=== PATIENT | male | born 1960 | race Two or more races ===

== ENCOUNTER 2018-04-26 11:46 | Inpatient (IN) | payer MEDICAID ==
[2018-04-26] MEDS ORDERED: IPRATROPIUM/ALBUTEROL 3 ML DEYVIAL IH ONE ×2 (12:06→13:08)
[2018-04-26] MEDS ORDERED: NS 500 ML IV ONE ×2 (12:12→14:00)
--- NOTE | 2018-04-26 12:28 | CPEKG ---
Heart Rate: 112 RR Interval: 536 P-R Interval: 144 QRSD Interval: 74 QT Interval: 308 QTC Interval: 421 P Whiteford: 50 QRS Whiteford: 84 T Wave Whiteford: 1 EKG Severity - OTHERWISE NORMAL ECG - EKG Impression: SINUS TACHYCARDIA Electronically Signed By: Roberto Moore 30-Apr-2018 02:40:09
--- NOTE | 2018-04-26 12:50 | EDPHY ---
H & P Time Seen by Provider: 04/26/18 11:51 HPI/ROS: CHIEF COMPLAINT: Shortness of breath HISTORY OF PRESENT ILLNESS: Per patient and family he has had cough, shortness of breath, fever since Monday. He was at his primary care office today, in this same building, for recheck after hospitalization for small bowel obstruction. When he arrived at the primary care office he had a fever he was hypoxic and tachycardic and he was sent down to the emergency department for further evaluation. Per family his belly pain had resolved although he developed a little bit of left-sided abdominal pain while in the primary care's physician's office. Otherwise his bowel obstruction seemed to have resolved with normal stools yesterday. His respiratory symptoms began on Monday with cough, congestion, mild shortness of breath. It was felt he had a fever on Monday but no temperature was taken. His respiratory symptoms have progressed over the last few days. He denies any chest pain. He has had no nausea or vomiting. He had some diarrhea last week and but none over the last few days. He has had no leg swelling. He has had no recent travel. Patient does have multiple scleroses and is generally weak but he has never had respiratory difficulties related to that before. REVIEW OF SYSTEMS: Constitutional: Fevers, chills Eyes: No discharge. ENT: Some sore throat and nasal congestion. Cardiovascular: No chest pain, no palpitations. Respiratory: Positive for cough and shortness of breath Gastrointestinal: Abdominal pain present, no vomiting. Genitourinary: No dysuria. Musculoskeletal: No back pain. Skin: No rashes. Neurological: No headache. General Appearance: Alert, moderate respiratory distress. Chronically ill- appearing. Eyes: Pupils equal and round no pallor or injection. ENT, Mouth: Mucous membranes tacky, oropharynx clear, uvula midline, no erythema. Respiratory: Increased respiratory effort, coarse breath sounds with diffuse rhonchi. Cardiovascular: Tachycardic, regular, no murmurs rubs gallops. No peripheral edema. Gastrointestinal: Abdomen is soft and mildly tender left lateral abdomen, no masses, bowel sounds normal. Neurological: Awake, following commands, no focal deficits but globally weak Skin: Warm and dry, no rashes. Musculoskeletal: Neck is supple nontender. Extremities are symmetrical, full range of motion, no edema. Psychiatric: Patient is oriented there is no agitation. Medical/surgical history: Hypertension, multiple sclerosis, recent small bowel obstruction nonsurgical. Urinary retention. Social history: Lives with family, nonsmoker. Smoking Status: Never smoked Constitutional: Initial Vital Signs Temperature (C) 36.9 C 04/26/18 11:58 Heart Rate 119 H 04/26/18 11:58 Respiratory Rate 28 H 04/26/18 11:58 Blood Pressure 115/89 H 04/26/18 11:58 O2 Sat (%) 86 L 04/26/18 11:58 O2 Delivery Mode Nasal Cannula O2 (L/minute) 4 Allergies/Adverse Reactions: No Known Allergies Allergy (Verified 04/26/18 11:58) Home Medications: Medication Instructions Recorded Baclofen 03/23/13 Citalopram [CeleXA] mg PO 03/23/13 QUETIAPINE FUMARATE [Seroquel] mg PO 03/23/13 Tizanidine HCl [Zanaflex] 03/23/13 Amlodipine Besylate 06/23/14 Hydrocodone/APAP 5/325 [[place] 1 tab PO Q4 #15 tab 06/23/14 5/325 (*)] Vit D3/Folic Acid/B2/B6/B12 06/23/14 Medical Decision Making - Diagnostics EKG Interpretation: EKG performed for shortness of breath. EKG shows sinus tachycardia with a rate of 112 otherwise normal EKG. Imaging Results: Imaging Impressions Chest X-Ray 04/26/18 12:05 Impression: 1. Poor inspiration with mild compressive atelectatic change at the left base and Imaging: I viewed and interpreted images myself ED Course/Re-evaluation: Re-evaluation after 1st DuoNeb, tachycardia improving, patient feels better, breath sounds still coarse with diffuse rhonchi. 1:[address] Sarah Garcia, hospitalist, plan for admission. Will hold antibiotics at this time. CT scan of chest reveals no pulmonary embolism, infiltrates or other acute processes. Differential Diagnosis: Differential diagnosis includes but is not limited to sepsis, pneumonia, CHF, COPD, multiple sclerosis exacerbation, recurrent bowel obstruction. After evaluation in the emergency department patient ill-appearing likely with viral upper respiratory infection but secondary to his MS, has poor respiratory reserve. Patient persistently hypoxic in the emergency department although maintain with 4 L of oxygen by nasal cannula. No signs of pneumonia or or focal infiltrate. No PE. Low suspicion for acute coronary syndrome. No acute findings on abdominal exam or CT scan. Patient will be admitted for further respiratory support. Discussed with hospitalist. Stable for transfer to [facility]. - Data Points Laboratory Results: Laboratory Results 04/26/18 12:05 04/26/18 04/26/18 04/26/18 12:09 12:07 12:05 WBC RBC Hgb Hct MCV MCH MCHC RDW Plt Count MPV Neut % (Auto) Lymph % (Auto) [place] % (Auto) Eos % (Auto) Baso % (Auto) Nucleat RBC Rel Count Absolute Neuts (auto) Absolute Lymphs (auto) Absolute Monos (auto) Absolute Eos (auto) Absolute Basos (auto) Absolute Nucleated RBC Immature Gran % Immature Gran # D-Dimer 0.66 ug/mLFEU H ug/mLFEU (0.00-0.50) POC Sodium 136 mEq/L mEq/L (135-145) POC Potassium 3.4 mEq/L mEq/L (3.3-5.0) POC Chloride 105.0 mEq/L mEq/L (97-110) POC Total CO2 24 mEq/L mEq/L (22-31) POC BUN 11 mg/dL mg/dL (7-23) POC Creatinine 1.0 mg/dL mg/dL (0.7-1.3) POC Glucose 124 mg/dL H mg/dL (70-100) POC Lactic Acid Vahe 1.1 mmol/L mmol/L (0.7-2.1) POC Calcium 8.9 mg/dL mg/dL (8.5-10.4) POC Total Bilirubin 0.7 mg/dL mg/dL (0.1-1.4) POC AST 26 IU/L IU/L (17-59) POC ALT 24 IU/L IU/L (21-72) POC Alk Phosphatase 97 IU/L IU/L (38-126) NT-Pro-B Natriuret Pep POC Total Protein 7.7 g/dL g/dL (6.3-8.2) POC Albumin 3.6 g/dL g/dL (3.5-5.0) 04/26/18 04/26/18 12:05 12:05 WBC 11.40 10^3/uL H 10^3/uL (3.80-9.50) RBC 4.81 10^6/uL 10^6/uL (4.40-6.38) Hgb 14.9 g/dL g/dL (13.7-17.5) Hct 43.4 % % (40.0-51.0) MCV 90.2 fL fL (81.5-99.8) MCH 31.0 pg pg (27.9-34.1) MCHC 34.3 g/dL g/dL (32.4-36.7) RDW 13.4 % % (11.5-15.2) Plt Count 257 10^3/uL 10^3/uL (150-400) MPV 11.0 fL fL (8.7-11.7) Neut % (Auto) 74.8 % H % (39.3-74.2) Lymph % (Auto) 17.1 % % (15.0-45.0) [place] % (Auto) 5.8 % % (4.5-13.0) Eos % (Auto) 1.8 % % (0.6-7.6) Baso % (Auto) 0.3 % % (0.3-1.7) Nucleat RBC Rel Count 0.0 % % (0.0-0.2) Absolute Neuts (auto) 8.54 10^3/uL H 10^3/uL (1.70-6.50) Absolute Lymphs (auto) 1.95 10^3/uL 10^3/uL (1.00-3.00) Absolute Monos (auto) 0.66 10^3/uL 10^3/uL (0.30-0.80) Absolute Eos (auto) 0.20 10^3/uL 10^3/uL (0.03-0.40) Absolute Basos (auto) 0.03 10^3/uL 10^3/uL (0.02-0.10) Absolute Nucleated RBC 0.00 10^3/uL 10^3/uL (0-0.01) Immature Gran % 0.2 % % (0.0-1.1) Immature Gran # 0.02 10^3/uL 10^3/uL (0.00-0.10) D-Dimer POC Sodium POC Potassium POC Chloride POC Total CO2 POC BUN POC Creatinine POC Glucose POC Lactic Acid Vahe POC Calcium POC Total Bilirubin POC AST POC ALT POC Alk Phosphatase NT-Pro-B Natriuret Pep 180 pg/mL H pg/mL (0-125) POC Total Protein POC Albumin Medications Given: Discontinued Medications Acetaminophen (Tylenol) 1,000 mg PO EDNOW ONE Stop: 04/26/18 13:29 Last Admin: 04/26/18 13:38 Dose: 1,000 mg Albuterol/Ipratropium (Duoneb) 3 ml IH EDNOW ONE Stop: 04/26/18 12:07 Last Admin: 04/26/18 12:08 Dose: 3 ml Albuterol/Ipratropium (Duoneb) 3 ml IH EDNOW ONE Stop: 04/26/18 13:09 Last Admin: 04/26/18 13:10 Dose: 3 ml Sodium Chloride (Ns) 500 mls @ 1,000 mls/hr IV EDNOW ONE PRN Reason: Protocol Stop: 04/26/18 12:41 Last Admin: 04/26/18 12:24 Dose: 500 mls Sodium Chloride (Ns) 500 mls @ 0 mls/hr IV EDNOW ONE; Wide Open PRN Reason: Protocol Stop: 04/26/18 14:01 Last Admin: 04/26/18 14:00 Dose: 500 mls Point of Care Test Results: Chemistry 04/26/18 12:07 POC Sodium 136 mEq/L mEq/L (135-145) POC Potassium 3.4 mEq/L mEq/L (3.3-5.0) POC Chloride 105.0 mEq/L mEq/L (97-110) POC Total CO2 24 mEq/L mEq/L (22-31) POC BUN 11 mg/dL mg/dL (7-23) POC Creatinine 1.0 mg/dL mg/dL (0.7-1.3) POC Glucose 124 mg/dL H mg/dL (70-100) POC Calcium 8.9 mg/dL mg/dL (8.5-10.4) POC Total Bilirubin 0.7 mg/dL mg/dL (0.1-1.4) POC AST 26 IU/L IU/L (17-59) POC ALT 24 IU/L IU/L (21-72) POC Alk Phosphatase 97 IU/L IU/L (38-126) POC Total Protein 7.7 g/dL g/dL (6.3-8.2) POC Albumin 3.6 g/dL g/dL (3.5-5.0) Blood Gas/Lactic Acid-Venous 04/26/18 12:09 POC Lactic Acid Vahe 1.1 mmol/L mmol/L (0.7-2.1) Urine Dip Collection Date 04/26/18 Collection Time 12:38 Specific [place] (1.002-1.030) 1.010 PH (5.0-7.5) 6.0 Leukocytes (Negative) Negative Nitrites (Negative) Negative Protein (Negative) Negative Glucose (Negative) Negative Ketones (Negative) Negative Urobilnogen (0.2-1.0 EU) 1.0 Bilirubin (Negative) Negative Blood (Negative) Negative Departure - Departure Disposition: [facility] Inpatient Acute Clinical Impression: Hypoxia, Multiple sclerosis
[2018-04-26 13:05] LABS: PLATELET COUNT 257 10^3/uL (150-400)
[2018-04-26] MEDS ORDERED: ACETAMINOPHEN 500 MG TAB PO ONE (13:28)
[2018-04-26] MEDS ORDERED: IOPAMIDOL (ISOVUE 370) 100 ML BTL IV ONE (13:40)
--- NOTE | 2018-04-26 16:35 | PDGENHP ---
History and Physical - Chief Complaint Cough, Fever - History of Present Illness This is a 58 yo jamaican speaking only male with a hx of advance MS who is wheelchair bound who was admitted to [facility] about a month ago who over the past 3 days has developed a cough, JEROME, and fever/chills. He was asked by his PCP to present to the E.D. today. In the ER he is noted to be hypoxemia requiring 4 L O2 (baseline is none) and has imaging concerning for infiltrate/ pneumonia. He is also noted to have tachycardia, increased resp rate, and Leukocytosis. Overall the pt doesn't look acutely ill, but it it is unclear why abx have not been started. IVF were given in the ER. BP is slightly decreased but he takes BP meds. A lactic acid has not been checked. He denies any chest pain, cardiac disease, leg swelling, palpitations, n/v/d. His SBO has resolved. Medical/surgical history: Hypertension, multiple sclerosis, recent small bowel obstruction nonsurgical. Urinary retention. Social history: Lives with family, nonsmoker (former smoker) FMHx: non contributory History Information - Allergies/Home Medication List Allergies/Adverse Reactions: No Known Allergies Allergy (Verified 04/26/18 11:58) Home Medications: Baclofen [Baclofen 20 mg (*)] 30 mg PO BID 04/26/18 [Last Taken 04/26/18 08:00] Cholecalciferol Vit D3 [Vitamin D3 2000 units tab (OTC)] 5,000 units PO DAILY [Last Taken 04/25/18] Escitalopram Oxalate [Lexapro] 20 mg PO DAILY 04/26/18 [Last Taken 04/26/18 08: 00] Ibuprofen [Motrin (*)] 600 mg PO DAILY PRN 04/26/18 [Last Taken 04/25/18] Losartan Potassium [Cozaar 50 mg (*)] 50 mg PO HS 04/26/18 [Last Taken 04/25/18] QUEtiapine FUMARATE [Seroquel 300mg (*)] 300 mg PO HS 04/26/18 [Last Taken 04/25] Tizanidine HCl 8 mg PO HS 04/26/18 [Last Taken 04/26/18] tiZANidine HCL [Zanaflex] 4 mg PO DAILY 04/26/18 [Last Taken Unknown] I have personally reviewed and updated: medical history, social history - Social History Smoking Status: Never smoked Review of Systems Review of Systems: ROS: 10pt was reviewed & negative except for what was stated in HPI & below Physical Exam Physical Exam: Temp Pulse Resp BP Pulse Ox 37.4 C 93 23 H 103/79 23 L 04/26/18 14:50 04/26/18 14:50 04/26/18 14:50 04/26/18 14:50 04/26/18 14:50 O2 (L/minute) 4 Constitutional: not in pain Eyes: PERRL, EOMI Ears, Nose, Mouth, Throat: moist mucous membranes, dry mucous membranes Cardiovascular: regular rate and rhythym, No edema Respiratory: rhonchi, No no respiratory distress (increased work of breathing) Gastrointestinal: normoactive bowel sounds Skin: warm Musculoskeletal: generalized weakness Neurologic: AAOx3 Psychiatric: interacting appropriately, not anxious, not encephalopathic Lymph, Heme, Immunologic: No petechiae Lab Data & Imaging Review 04/26/18 12:05 WBC 11.40 10^3/uL (3.80-9.50) H 04/26/18 12:05 RBC 4.81 10^6/uL (4.40-6.38) 04/26/18 12:05 Hgb 14.9 g/dL (13.7-17.5) 04/26/18 12:05 Hct 43.4 % (40.0-51.0) 04/26/18 12:05 MCV 90.2 fL (81.5-99.8) 04/26/18 12:05 MCH 31.0 pg (27.9-34.1) 04/26/18 12:05 MCHC 34.3 g/dL (32.4-36.7) 04/26/18 12:05 RDW 13.4 % (11.5-15.2) 04/26/18 12:05 Plt Count 257 10^3/uL (150-400) 04/26/18 12:05 MPV 11.0 fL (8.7-11.7) 04/26/18 12:05 Neut % (Auto) 74.8 % (39.3-74.2) H 04/26/18 12:05 Lymph % (Auto) 17.1 % (15.0-45.0) 04/26/18 12:05 [place] % (Auto) 5.8 % (4.5-13.0) 04/26/18 12:05 Eos % (Auto) 1.8 % (0.6-7.6) 04/26/18 12:05 Baso % (Auto) 0.3 % (0.3-1.7) 04/26/18 12:05 Nucleat RBC Rel Count 0.0 % (0.0-0.2) 04/26/18 12:05 Absolute Neuts (auto) 8.54 10^3/uL (1.70-6.50) H 04/26/18 12:05 Absolute Lymphs (auto) 1.95 10^3/uL (1.00-3.00) 04/26/18 12:05 Absolute Monos (auto) 0.66 10^3/uL (0.30-0.80) 04/26/18 12:05 Absolute Eos (auto) 0.20 10^3/uL (0.03-0.40) 04/26/18 12:05 Absolute Basos (auto) 0.03 10^3/uL (0.02-0.10) 04/26/18 12:05 Absolute Nucleated RBC 0.00 10^3/uL (0-0.01) 04/26/18 12:05 Immature Gran % 0.2 % (0.0-1.1) 04/26/18 12:05 Immature Gran # 0.02 10^3/uL (0.00-0.10) 04/26/18 12:05 D-Dimer 0.66 ug/mLFEU (0.00-0.50) H 04/26/18 12:05 POC Sodium 136 mEq/L (135-145) 04/26/18 12:07 POC Potassium 3.4 mEq/L (3.3-5.0) 04/26/18 12:07 POC Chloride 105.0 mEq/L (97-110) 04/26/18 12:07 POC Total CO2 24 mEq/L (22-31) 04/26/18 12:07 POC BUN 11 mg/dL (7-23) 04/26/18 12:07 POC Creatinine 1.0 mg/dL (0.7-1.3) 04/26/18 12:07 POC Glucose 124 mg/dL (70-100) H 04/26/18 12:07 POC Lactic Acid Vahe 1.1 mmol/L (0.7-2.1) 04/26/18 12:09 POC Calcium 8.9 mg/dL (8.5-10.4) 04/26/18 12:07 POC Total Bilirubin 0.7 mg/dL (0.1-1.4) 04/26/18 12:07 POC AST 26 IU/L (17-59) 04/26/18 12:07 POC ALT 24 IU/L (21-72) 04/26/18 12:07 POC Alk Phosphatase 97 IU/L (38-126) 04/26/18 12:07 NT-Pro-B Natriuret Pep 180 pg/mL (0-125) H 04/26/18 12:05 POC Total Protein 7.7 g/dL (6.3-8.2) 04/26/18 12:07 POC Albumin 3.6 g/dL (3.5-5.0) 04/26/18 12:07 Assessment & Plan Assessment: #Pneumonia, community acquired vs hospital acquired viral vs bacterial #Possible sepsis per criteria -Tachycardia, Tachypnea, Leukocytosis, Fever, Low BP #Acute respiratory failure #Fever #Hypotension in a pt with hx of HTN #Generalized Weakness #Recent SBO, resolved #MS Plan: Start Zosyn while w/u is pending Resp panel pending check PC and Lactic Acid He has already received some IVF in the ER. BP is in the low 100's. I will cont IVF at 75ml/hr. Bolus if needed Full Code Lovenox for DVT proph PT/OT
[2018-04-26] MEDS ORDERED: ONDANSETRON DISINTEGRATING 4 MG TAB PO PRN (16:40)
[2018-04-26] MEDS ORDERED: ONDANSETRON 4 MG/2 ML VIAL IVP PRN (16:40)
[2018-04-26] MEDS: NS 1,000 ML IV SCH (17:37)
[2018-04-26] MEDS ORDERED: PIPERACILLIN/TAZO 3.375 GM/DEX 50 ML IV SCH (18:00)
[2018-04-26] MEDS: IPRATROPIUM/ALBUTEROL 3 ML DEYVIAL IH SCH (21:08)
[2018-04-26] MEDS: QUEtiapine FUMARATE 300 MG TAB PO SCH (21:21)
[2018-04-26] MEDS: BACLOFEN 20 MG TAB PO SCH (21:21)
[2018-04-26] MEDS: ACETAMINOPHEN 325 MG TAB PO PRN (21:30)
[2018-04-27 05:20] LABS: PLATELET COUNT 257 10^3/uL (150-400)
[2018-04-27] MEDS: IPRATROPIUM/ALBUTEROL 3 ML DEYVIAL IH SCH ×4 (05:29→20:50)
[2018-04-27] MEDS ORDERED: NS 1,000 ML IV ONE ×3 (08:59→11:00)
[2018-04-27] MEDS ORDERED: ALBUMIN 5% 500 ML BOTTLE IV ONE (10:27)
[2018-04-27] MEDS ORDERED: ALBUMIN 5% 500 ML IV ONE (11:00)
[2018-04-27] MEDS: CHOLECALCIFEROL VIT D3 2,000 UNITS TAB/CAP PO SCH (11:04)
[2018-04-27] MEDS: PIPERACILLIN/TAZO 3.375 GM/DEX 50 ML IV SCH ×3 (11:05→23:35)
[2018-04-27] MEDS ORDERED: ALTEPLASE 2 MG VIAL IVP PRN (11:05)
--- NOTE | 2018-04-27 11:30 | ASMTCASEMG ---
Living Arrangements What is your living Answers: With Spouse arrangement? Who do you live with? Type Of Residence What kind of residence do Answers: Apartment you live in? Type of Residence Facility Name Notes: It is unclear if patient is living alone or with his . They have listed 2 separate addresses. Discharge Plan Comments Coordination Status Comments Notes: Patient is a 58yo male who is Norwegian speaking only and has a hx of MS. He was admitted for community acquired pneumonia, possible sepsis, tachycardia, acute respiratory failure, fever, hypotension and generalized weakness. Pt/OT/[employer]OR [employer] SALES have been ordered. D/C plan TBD. CM will follow. Date Signed: 04/27/2018 11:29 AM Electronically Signed By:Justyna Reaves LCSW
--- NOTE | 2018-04-27 12:30 | ECHO ---
[email or web address] [address] [address] Main: [phone] Fax: Transthoracic Echocardiogram Name: FREDY MCCRARY MR#: [id number] Study Date: 04/27/2018 Study Time: 11:25 AM Date of : 1960 Age: 58 year(s) Height: 167.6 cm (66 in.) Weight: 102.97 kg (227 lb.) BSA: 2.11 m2 Gender: Male Examination: Echo Indication: Acute Hypotension, Respiratory, Multiple Sclerosis Image Quality: Contrast: Requested by: Jey Dalal BP: 69 mmHg/47 mmHg Heart Rate: Rhythm: Normal sinus rhythm Indication: Acute Hypotension, Respiratory, Multiple Sclerosis Procedure Staff Ton Container Shipper: Eleazar Valenzuela RDCS Reading Physician: Vinay Westbrook MD Requesting Provider: Conclusions: Normal size left ventricle. No LV hypertrophy. Normal global systolic LV function. EF is 71 %. No regional wall motion abnormality. Normal diastolic LV function. Normal RV function. There is no mitral valve regurgitation. The aortic valve is normal in appearance and function. No previous Measurements: Chambers Valvular Assessment AV/MV Valvular Assessment TV/PV Normal Normal Normal Name Value Range Name Value Range Name Value Range Ao Shannon (MM): 3.4 cm (2.2 cm-3.7 AV Vmax: 1.19 m/s (1 m/s-1.7 TR Vmax: 2.38 mm/s ( - ) cm) m/s) TR PGmax: 23 mmHg ( - ) IVSd (2D): 1.0 cm (0.6 cm-1.1 AV maxP mmHg ( - ) syst. PAP: 28 mmHg ( - ) cm) LVOT Vmax: 0.84 m/s (0.7 m/s-1.1 PV Vmax: 0.80 m/s (0.6 m/s-0.9 LVDd (2D): 3.0 cm (4.2 cm-5.9 m/s) m/s) cm) MV E Vmax: 0.87 m/s ( - ) PV PGmax: 3 mmHg ( - ) LVDs (2D): 1.8 cm (2.1 cm-4 MV A Vmax: 0.36 m/s ( - ) cm) MV E/A: 2.42 ( - ) LVPWd (2D): 1.0 cm (0.6 cm-1 cm) LVEF (2D): 71 (>=54 %) Continued Measurements: Chambers Valvular Assessment AV/MV Valvular Assessment TV/PV Patient: FREDY MCCRARY Study Date: 04/27/2018 Page 1 of 2 11:25 AM Name Value Name Value Name Value LADs Lon.3 cm MV E' Septal: 0.07 m/s CVP (est.): 5 mmHg LA Area: 21.4 cm2 MV E/E' Septal: 11.70 LA Volume: 67 ml MV E/E' Lateral: 7.60 LA Volume Index: 31.8 ml/m2 Findings: Left Ventricle: Normal size left ventricle. No LV hypertrophy. Normal global systolic LV function. EF is 71 %. No regional wall motion abnormality. Normal diastolic LV function. Right Ventricle: Normal size right ventricle. Normal RV function. Left Atrium: The left atrium is normal in size. Right Atrium: The right atrium is normal in size. Mitral Valve: The mitral valve is normal in appearance and function. There is no mitral valve regurgitation. Aortic Valve: The aortic valve is tri-leaflet. The aortic valve is normal in appearance and function. Tricuspid Valve: The tricuspid valve is normal in appearance and function. Pulmonic Valve: The pulmonic valve is normal in appearance and function. Aorta: The aorta is normal. Pericardium: No pericardial effusion. There is pericardial fat. (No Signature Object) Patient: FREDY MCCRARY Study Date: 04/27/2018 Page 2 of 2 11:25 AM [id number]
--- NOTE | 2018-04-27 13:01 | PDMN ---
Medical Necessity Medical necessity: Pt meets IP criteria per MD; est los >2 mn for eval/tx of human rhinovirus w/tachycardia, tachypnea, leukocytosis, fever, hypotension, acute respiratory failure & generalized weakness; admit for further workup/ monitoring, IVFs, IV abx, supportive care & therapies; hx MS, HTN, recent SBO; per H&P & order 04/26/18
[2018-04-27] MEDS: NOREPINEPHRINE/NS 500 ML IV SCH (13:12)
[2018-04-27] MEDS: VANCOMYCIN 1.5 GM in NS 250 ML IV SCH (13:32)
[2018-04-27] MEDS: BACLOFEN 20 MG TAB PO SCH ×2 (14:34→21:57)
[2018-04-27] MEDS: ENOXAPARIN 40 MG/0.4 ML SYR SC SCH (14:34)
[2018-04-27] MEDS: ESCITALOPRAM OXALATE 10 MG TAB PO SCH (14:35)
[2018-04-27] MEDS ORDERED: LIDOCAINE 2% JELLY 20 ML (UROJECT) ONE (14:47)
[2018-04-27] MEDS ORDERED: LIDOCAINE 2% JELLY 20 ML (UROJECT) UR ONE (15:00)
--- NOTE | 2018-04-27 15:10 | PDRADPN ---
Radiology Procedure Note Date of Procedure: 04/27/18 Radiologist: Tarik Arechiga Anesthesia: Local (Specify) Pre-op Diagnosis: hypotension Post-op Diagnosis: same Indication: venous access Procedure: RUE DL power picc Finding(s): patent rue brachial vein. 45cm cath to upper RA. ok to use. Inf/Abcess present in the surg proc area at time of surgery?: No Complications: none
--- NOTE | 2018-04-27 17:00 | HOSPPROG ---
Hospitalist Progress Note Assessment/Plan: Subjective Patient starts contacted me early this morning to inform the patient's blood pressures were running low. His systolic blood pressure readings in the 60s. We started 2 bolus IV fluids and I reviewed the case with Dr. Dalal with Pulmonary included Critical Care Medicine. Patient was transferred to the ICU in light of the persistent hypotension. The patient was symptomatic stating he was feeling lightheaded. The patient's family including his and daughter were present at the bedside and were updated on the current status this morning and the plan for transfer to the ICU considering decline in his blood pressures. Objective Vital signs as detailed below Physical exam General-patient appeared comfortable he was awake with his eyes open and interacting he is Urdu-speaking only Heart-regular no murmurs appreciated Lungs-mild coarseness with wheezing throughout respiratory effort appeared normal Abdomen-nondistended nontender no suprapubic fullness or distention appreciated -no Rice catheter at the time of my evaluation Extremities-no significant pitting edema Musculoskeletal no calf pain with palpation Labs as detailed below Assessment plan Septic shock-patient does meet criteria for systemic inflammatory response syndrome based upon hypotension and leukocytosis. The current infectious source is identified as a rhino virus infection however there may be some other source that has been identified. A urinalysis with urine culture has been ordered. I recommend that we continue to bolus with normal saline. I have written orders for Levophed to be started if blood pressure is not responding. I also recommend that we resume antibiotic therapy until further investigation complete. Acute hypoxic respiratory failure-patient is not typically on oxygen during the daytime he is requiring 3 L currently. Likely require related to write a virus infection. Continue with scheduled nebulizers and supplemental oxygen. Rhino virus infection-continue with supportive measures as detailed above. Multiple sclerosis-continue baclofen and tizanidine. Hypertension-holding antihypertensives at this point time. Small bowel obstruction-resolved. Patient was recently in the hospital for small bowel obstruction. Urine retention-may need to consider Rcie catheter placement Depression continue with Lexapro and Seroquel DVT prophylaxis-Lovenox Disposition-guarded currently as he is being transferred to the ICU in light of severe hypertension. Objective: Vital Signs Temp Pulse Resp BP Pulse Ox 35.9 C L 78 16 101/59 L 97 04/27/18 16:00 04/27/18 16:05 04/27/18 16:05 04/27/18 16:00 04/27/18 16:05 Laboratory Results 04/27/18 04:35 04/27/18 04:35 04/26/18 04/27/18 04/28/18 05:59 05:59 05:59 Intake Total 1250 1500 Output Total 150 Balance 1100 1500 ICD10 Worksheet Patient Problems: Problems Problem Status Onset Hypoxia Acute Multiple sclerosis Acute
[2018-04-27] MEDS: NS 1,000 ML IV SCH (18:11)
[2018-04-27] MEDS: QUEtiapine FUMARATE 300 MG TAB PO SCH (21:57)
[2018-04-27] MEDS: ACETAMINOPHEN 325 MG TAB PO PRN (22:05)
[2018-04-28] MEDS: VANCOMYCIN 1.5 GM in NS 250 ML IV SCH ×2 (01:59→12:49)
[2018-04-28] MEDS: NOREPINEPHRINE/NS 500 ML IV SCH (03:04)
[2018-04-28 04:43] LABS: PLATELET COUNT 206 10^3/uL (150-400)
[2018-04-28] MEDS: IPRATROPIUM/ALBUTEROL 3 ML DEYVIAL IH SCH ×4 (05:30→22:59)
[2018-04-28] MEDS: PIPERACILLIN/TAZO 3.375 GM/DEX 50 ML IV SCH ×4 (06:25→23:30)
[2018-04-28] MEDS: ENOXAPARIN 40 MG/0.4 ML SYR SC SCH (09:28)
[2018-04-28] MEDS: BACLOFEN 20 MG TAB PO SCH ×2 (09:29→19:47)
[2018-04-28] MEDS: ESCITALOPRAM OXALATE 10 MG TAB PO SCH (09:32)
[2018-04-28] MEDS: CHOLECALCIFEROL VIT D3 2,000 UNITS TAB/CAP PO SCH (09:32)
[2018-04-28] MEDS: NS 1,000 ML IV SCH (11:40)
--- NOTE | 2018-04-28 14:49 | PDINTPN ---
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 Normotensive on NE @ 2, being weaned off. Cause uncertain. NICOM more C/W distributive shock, with goo CO and low SVR. On Vanco and Zosyn. Blood Cx negative. WBC down. Afebrile. Normal ECHO argues against acute PE. No apparent organ dysfunction except for mild hypoxemia. Rhinovirus pneumonia MS: Wheelchair-dependent Plan: Wean NE. Continue Zosyn/Vanco today, D/C Vanco tomorrow if cultures remain negative. 04/28/18 14:52 04/28/18 14:53 Subjective: Feels better, no longer having lightheadedness. Objective: Vital Signs Temp Pulse Resp BP Pulse Ox 36.4 C 56 L 14 125/82 H 96 04/28/18 12:00 04/28/18 14:00 04/28/18 14:00 04/28/18 14:00 04/28/18 14:00 Laboratory Results 04/28/18 04:05 04/28/18 04:05 04/27/18 04/28/18 04/29/18 05:59 05:59 05:59 Intake Total 1250 6923 Output Total 150 1200 425 Balance 1100 5723 -425 Echo: EF 71%. Normal RV size and function. CXR: Mild interstitial edema. Images reviewed by me. Physical Exam - Physical Exam General Appearance: alert, no apparent distress EENT: normal ENT inspection Neck: normal inspection Respiratory: lungs clear, normal breath sounds Cardiac/Chest: normal peripheral pulses, regular rate, rhythm Abdomen: normal bowel sounds, non-tender Skin: normal color, warm/dry Extremities: normal inspection Neuro/Psych: alert, normal mood/affect, oriented x 3, No motor weakness ICD10 Worksheet Patient Problems: Problems Problem Status Onset Hypoxia Acute Multiple sclerosis Acute
--- NOTE | 2018-04-28 15:19 | GCON ---
[f rep st] CONSULTATION PULMONARY/CRITICAL CARE CONSULTATION DATE OF CONSULTATION: 04/27/2018 REFERRING PHYSICIAN: Denis Agarwal MD REASON FOR REFERRAL: Evaluation and management of hypotension. HISTORY: Mr. Martínez is a 58-year-old male with a history of multiple sclerosis, who was admitted to [facility] yesterday with 3 days of cough, shortness of breath, and fever/chills. He was sent to [facility] emergency department yesterday where he was found to have hypoxemia requiring 4 L of oxygen and a p ossible infiltrate on chest x-ray. He was started on Zosyn. A respiratory panel was positive for rh inovirus. He was doing fairly well, but this morning he was found to be hypotensive with a blood pre ssure of 67/48. He received some IV fluids, but his blood pressure was not responding promptly, so [facility] was transferred to the intensive care unit. He felt a bit lightheaded/dizzy, and then placed in Tr endelenburg. He denies any chest pain and does not feel short of breath. PAST MEDICAL HISTORY: 1. Multiple sclerosis, wheelchair-dependent. 2. Hypertension. 3. History of recent small-bowel obstruction, treated nonoperatively. MEDICATIONS: At the time of admission include losartan, Zanaflex, Seroquel, Lexapro, baclofen, Motri n. The patient was on Zosyn, but that was discontinued once the patient's respiratory panel came cyn k negative. ALLERGIES: None. SOCIAL HISTORY: The patient does not smoke. FAMILY HISTORY: Unremarkable. REVIEW OF SYSTEMS: A 10-point review of systems adds nothing to the history of present illness. PHYSICAL EXAMINATION: GENERAL: The patient is awake and alert. He is lying in bed in the Trendelen nadia position. VITAL SIGNS: Blood pressure 71/43 with a heart rate of 67. Afebrile. Oxygen satura tions 95% on 6 L. HEENT: Normocephalic and atraumatic. No icterus. NECK: No JVD. Trachea is mid line. CHEST: Clear to auscultation. CARDIAC: Regular rate and rhythm without murmur. ABDOMEN: S oft, nontender. Bowel sounds are present. EXTREMITIES: No clubbing, cyanosis, or edema. NEURO: [facility] patient is awake and alert. There are no gross new motor or sensory deficits. LABORATORY: Chemistry group is unremarkable. Glucose is 122. BNP is 199. Lactate is 1.2. White b lood count 16.4, up from 11.4. D-dimer was 0.66 yesterday. Urinalysis shows a specific a gravity of 1.033 and greater than 50 hyaline casts. Just 1-3 white blood cells. A chest x-ray S from April 26 shows some mild basilar atelectasis. A CT scan from April 26 shows no pu lmonary emboli. There is some mild bronchial thickening. There is some layering fluid in the trache a. Images reviewed by me. ASSESSMENT: 1. Hypotension. The patient had onset of hypotension overnight, however, so far has not responded t o initial IV fluid bolus of 1 L. The patient is symptomatic only with dizziness. The possibilities include hypovolemic hypotension, sepsis/distributive shock, and cardiogenic shock. The patient has a lready received Zosyn, and this is about to be restarted. This would be unlikely for the rhinovirus from the respiratory panel to cause significant hypotension. 2. Rhinovirus infection. This is likely contributing to the patient's symptoms of cough and shortne ss of breath and chills, although it is also possible that a bacterial infection is causing the fever s and chills. RECOMMENDATIONS: Check an echocardiogram and troponins. If the echocardiogram suggests acute PE, a repeat CT scan of the chest will be ordered. I will continue IV fluid boluses. A NICOM monitor will be checked to assess fluid responsiveness. I have ordered a PICC line, and norepinephrine will be s tarted if necessary. 50 minutes critical care time managing refractory hypotension. /[id number]/MODL
--- NOTE | 2018-04-28 16:35 | HOSPPROG ---
Hospitalist Progress Note Assessment/Plan: Subjective Follow-up on septic shock. Patient ultimately did need to start on vasopressors. Fortunately he has been able to wean down his need over the past 24 hr. I reviewed the case with Dr. Dalal this morning and will continue with current measures as patient does seem to be stabilizing and slowly improving. Family is present at the bedside today I did update them overall as well on the current clinical status and plan. I reviewed his case as well with his nurse today and she stated that vasopressors were able to be stopped briefly overnight but need to be subsequently restarted. Objective Vital signs as detailed below Physical exam General-patient appears more energetic today as compared to yesterday's exam he is sitting at about 45 in the bed with no complaints of lightheadedness Heart-regular rate and rhythm no murmurs noted Lungs-mild coarseness without significant wheezing throughout. Respiratory effort is normal lung exam is stable to the possibly slightly improved as compared to yesterday's evaluation. Abdomen-soft nontender nondistended -Rice catheter in place Extremities-no significant pitting edema Musculoskeletal-no calf pain with palpation Labs as detailed below Assessment and plan Septic shock-improving. Source unclear. He did test positive for rhino virus the degree of hypotension seem somewhat unusual for this viral infection. Appreciate Dr. Dalal assistance on the case. We will plan on continuing Zosyn and vancomycin a for another 24 hr and then holding vancomycin tomorrow if cultures return negative. Acute hypoxic respiratory failure-patient does not use any oxygen during the daytime but currently requiring about 3 L. Continue wean as able continue scheduled nebulizers. Rhino virus infection-continue supportive measures as detailed above Multiple sclerosis-continue baclofen and tizanidine Hypertension-holding antihypertensives in light of hypotension Urine retention-Rice catheter placed Depression-continue Lexapro and Seroquel DVT prophylaxis-Lovenox Disposition-improved today as compared to yesterday. He continue ICU level of care. Objective: Vital Signs Temp Pulse Resp BP Pulse Ox 36.4 C 69 21 H 130/78 H 97 04/28/18 12:00 04/28/18 16:15 04/28/18 16:15 04/28/18 14:50 04/28/18 16:15 Laboratory Results 04/28/18 04:05 04/28/18 04:05 04/27/18 04/28/18 04/29/18 05:59 05:59 05:59 Intake Total 1250 6923 Output Total 150 1200 425 Balance 1100 5723 -425 ICD10 Worksheet Patient Problems: Problems Problem Status Onset Hypoxia Acute Multiple sclerosis Acute
[2018-04-28] MEDS: ACETAMINOPHEN 325 MG TAB PO PRN (19:48)
[2018-04-28] MEDS: QUEtiapine FUMARATE 300 MG TAB PO SCH (19:48)
[2018-04-29] MEDS: VANCOMYCIN 1.5 GM in NS 250 ML IV SCH ×2 (01:06→15:34)
[2018-04-29 04:36] LABS: PLATELET COUNT 218 10^3/uL (150-400)
[2018-04-29] MEDS: IPRATROPIUM/ALBUTEROL 3 ML DEYVIAL IH SCH ×4 (05:29→22:17)
[2018-04-29] MEDS: NS 1,000 ML IV SCH (05:45)
[2018-04-29] MEDS: PIPERACILLIN/TAZO 3.375 GM/DEX 50 ML IV SCH ×4 (05:45→23:43)
[2018-04-29] MEDS: BACLOFEN 20 MG TAB PO SCH ×2 (09:18→20:05)
[2018-04-29] MEDS: ESCITALOPRAM OXALATE 10 MG TAB PO SCH (09:19)
[2018-04-29] MEDS: CHOLECALCIFEROL VIT D3 2,000 UNITS TAB/CAP PO SCH (09:19)
[2018-04-29] MEDS: ENOXAPARIN 40 MG/0.4 ML SYR SC SCH (09:20)
[2018-04-29] MEDS ORDERED: FUROSEMIDE 20 MG/2 ML VIAL IVP ONE (14:06)
--- NOTE | 2018-04-29 14:11 | PDINTPN ---
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 Normotensive on NE @ 2, being weaned off. Cause uncertain. NICOM more C/W distributive shock, with good CO and low SVR. On Vanco and Zosyn. Blood Cx negative. WBC down. Afebrile. Normal ECHO argues against acute PE. No apparent organ dysfunction except for mild hypoxemia. Rhinovirus pneumonia MS: Wheelchair-dependent Plan: Continue Zosyn, D/C Vanco. Stop IVF, give a dose of Lasix. Probably can transfer to floor. Keep Rice in for now, he's usually incontinent and wears a diaper. 04/29/18 14:10 Subjective: Still feels quite weak. Poor appetite. Objective: Vital Signs Temp Pulse Resp BP Pulse Ox 38.6 C H 85 21 H 122/105 H 93 04/29/18 14:00 04/29/18 14:00 04/29/18 14:00 04/29/18 14:00 04/29/18 14:00 Microbiology 04/27/18 09:45 Urine Culture - Final Urine,Catheterized Laboratory Results 04/29/18 04:15 04/29/18 04:15 04/28/18 04/29/18 04/30/18 05:59 05:59 05:59 Intake Total 3701 2428 Output Total 1200 8433 Balance 5723 -1117 Physical Exam - Physical Exam General Appearance: alert, no apparent distress EENT: normal ENT inspection Neck: normal inspection Respiratory: chest non-tender, lungs clear, normal breath sounds Cardiac/Chest: normal peripheral pulses, edema (tace), No regular rate, rhythm Abdomen: normal bowel sounds, non-tender Skin: normal color, warm/dry Extremities: normal inspection Neuro/Psych: alert, normal mood/affect, oriented x 3 ICD10 Worksheet Patient Problems: Problems Problem Status Onset Hypoxia Acute Multiple sclerosis Acute
[2018-04-29] MEDS: ACETAMINOPHEN 325 MG TAB PO PRN (17:38)
--- NOTE | 2018-04-29 18:07 | HOSPPROG ---
Hospitalist Progress Note Assessment/Plan: Subjective Follow-up on septic shock. When rounding again in the late afternoon on the patient he had been able to maintain off of vasopressors throughout the day. The family noted that his level of consciousness seemed to be decreased so we discussed with his nurse about ordering CT scan of the head for further assessment. No complaints of any headaches photophobia or fevers. Objective Vital signs as detailed below Physical exam General-in the morning patient appeared more energetic as compared to yesterday' s exam he was having breakfast Heart-regular rate and rhythm no murmurs Lungs-a continue mild coarseness thumb anteriorly respiratory effort appeared normal Abdomen-soft nontender nondistended -Rice catheter in place Extremities-no significant pitting edema Musculoskeletal-no calf pain with palpation Labs as detailed below Assessment plan Septic shock-seems resolved at the current time as he has been stable off of vasopressors throughout the day today. Appreciate Dr. Dalal assistance on the case. Vancomycin has been stopped and will continue with Zosyn. Acute hypoxic respiratory failure-patient is not use any oxygen during the daytime but currently requiring 3 L continue to wean as able with scheduled nebulizers. Etiology likely related to the right of virus infection. Rhino virus infection-continue supportive measures. Encephalopathy-patient appeared more lethargic today in the afternoon. CT scan of the head without contrast for further assessment. Multiple sclerosis continue baclofen and tizanidine. Hypertension-holding antihypertensives. Urine retention-Rice catheter in place. Depression-continue Lexapro and Seroquel. DVT prophylaxis-Lovenox Disposition-patient appears stable for transfer back to floor level of care at this time. Objective: Vital Signs Temp Pulse Resp BP Pulse Ox 38.8 C H 79 17 121/84 H 93 04/29/18 16:00 04/29/18 16:00 04/29/18 16:00 04/29/18 16:00 04/29/18 16:00 Microbiology 04/27/18 09:45 Urine Culture - Final Urine,Catheterized Laboratory Results 04/29/18 04:15 04/29/18 04:15 04/28/18 04/29/18 04/30/18 05:59 05:59 05:59 Intake Total 9704 0351 390 Output Total 6048 4036 0539 Balance 5780 -0598 -9344 ICD10 Worksheet Patient Problems: Problems Problem Status Onset Hypoxia Acute Multiple sclerosis Acute
[2018-04-29] MEDS: QUEtiapine FUMARATE 300 MG TAB PO SCH (20:04)
[2018-04-30] MEDS: IPRATROPIUM/ALBUTEROL 3 ML DEYVIAL IH SCH ×4 (05:48→21:49)
[2018-04-30] MEDS: PIPERACILLIN/TAZO 3.375 GM/DEX 50 ML IV SCH ×4 (06:14→22:54)
[2018-04-30 06:28] LABS: PLATELET COUNT 236 10^3/uL (150-400)
[2018-04-30] MEDS ORDERED: PROTOCOL POTASSIUM 1 DOSE MISC PRN (06:35)
[2018-04-30] MEDS ORDERED: POTASSIUM CL 10 MEQ TAB PO ONE ×2 (07:27→22:31)
[2018-04-30] MEDS: BACLOFEN 20 MG TAB PO SCH ×2 (08:31→20:57)
[2018-04-30] MEDS: CHOLECALCIFEROL VIT D3 2,000 UNITS TAB/CAP PO SCH (08:31)
[2018-04-30] MEDS: ESCITALOPRAM OXALATE 10 MG TAB PO SCH (08:31)
--- NOTE | 2018-04-30 09:07 | HOSPPROG ---
Hospitalist Progress Note Assessment/Plan: History/physical performed with brass buffer #Septic shock: off pressors. Still on broad-abx. Cultures negative. Normal echo +Rhinovirus, PNA -Day 03/12 Zosyn #Metabolic encephalopathy: due to acute illness. Per daughter, has mild cognitive impairment at baseline. No acute infarct on CTH -add Zyprexa for agitation -out-of-bed, blinds open #Acute hypoxic resp failure: due to Rhinovirus, volume overload. #Mild LAVELLE: due to diuresis. Hold off on lasix today (net -2L yesterday) #MS: wheel-chair bound #HTN: holding BP meds #Urinary retention: paulson #Diet: reg #DVT ppx: LMWH #Disp: cont inpatient admission for IV abx, serial labs Subjective: confused per family Objective: Vital Signs Temp Pulse Resp BP Pulse Ox 36.8 C 56 L 14 104/75 98 04/30/18 08:00 04/30/18 08:00 04/30/18 08:00 04/30/18 08:00 04/30/18 08:00 Microbiology 04/27/18 09:45 Urine Culture - Final Urine,Catheterized Laboratory Results 04/30/18 06:15 04/30/18 04:55 04/29/18 04/30/18 05/01/18 05:59 05:59 05:59 Intake Total 2507 1140 Output Total 3624 6390 Balance -3813 -4485 - Time Spent With Patient Time Spent with Patient: greater than 35 minutes Time Spent with Patient: Greater than 35 minutes spent on this patients care, greater than 50% of time spent counseling, educating, and coordinating care regarding the above mentioned plan. - Physical Exam Constitutional: no apparent distress Eyes: PERRL Ears, Nose, Mouth, Throat: moist mucous membranes Cardiovascular: regular rate and rhythym, edema (trace pedal edema) Respiratory: rhonchi Gastrointestinal: normoactive bowel sounds Genitourinary: no bladder fullness Neurologic: CN II-XII Intact Psychiatric: encephalopathic ICD10 Worksheet Patient Problems: Problems Problem Status Onset Hypoxia Acute Multiple sclerosis Acute
[2018-04-30] MEDS: ENOXAPARIN 40 MG/0.4 ML SYR SC SCH (09:54)
[2018-04-30] MEDS ORDERED: TEARS/DEXTRAN 70/HYPROMELLOSE 15 ML OPHT.BTL EACHEYE PRN (10:14)
--- NOTE | 2018-04-30 12:39 | ASMTCMCOM ---
CM Note CM Note Notes: Therapies are recommending HC services for patient on discharge. Asked daughter who they were current with, she will ask her mother and let CM know which agency. Date Signed: 04/30/2018 12:38 PM Electronically Signed By:Stephanie Galvin LCSW
[2018-04-30] MEDS ORDERED: NS 1,000 ML IV SCH (20:00)
[2018-04-30] MEDS: QUEtiapine FUMARATE 300 MG TAB PO SCH (20:59)
[2018-05-01] MEDS: PIPERACILLIN/TAZO 3.375 GM/DEX 50 ML IV SCH ×3 (05:51→17:08)
[2018-05-01] MEDS: IPRATROPIUM/ALBUTEROL 3 ML DEYVIAL IH SCH ×4 (06:21→21:54)
[2018-05-01] MEDS ORDERED: POTASSIUM CL 10 MEQ TAB PO ONE ×2 (08:07→20:00)
[2018-05-01] MEDS: ENOXAPARIN 40 MG/0.4 ML SYR SC SCH (08:46)
--- NOTE | 2018-05-01 08:46 | HOSPPROG ---
Hospitalist Progress Note Assessment/Plan: History/physical performed with full time staff interpreter #Septic shock: off pressors. Still on broad-abx. Cultures negative. Normal echo +Rhinovirus, PNA -Day 04/12 Zosyn #Metabolic encephalopathy: much improved today. Due to acute illness. Per daughter, has mild cognitive impairment at baseline. No acute infarct on CTH -out-of-bed, blinds open #Hypotension: from over-diuresis. Resolved with small IVFs #Constipation: bowel regimen #Hypernatremia: encourage PO #Acute hypoxic resp failure: due to Rhinovirus, volume overload. Titrate oxygen as tolerated. #Mild LAVELLE: improved with gentle IVFs. Hold off on lasix today #MS: wheel-chair bound #HTN: holding BP meds #Urinary retention: he c/o BPH sxs at home. Meds contributing. Pull paulson, start Flomax #Deconditioning: PT evaluating. Home with 29/05 care vs SNF #Diet: reg #DVT ppx: LMWH #Disp: cont inpatient admission for IV abx, serial labs Subjective: much more alert today Objective: Vital Signs Temp Pulse Resp BP Pulse Ox 36.9 C 97 20 119/73 91 L 04/30/18 20:50 05/01/18 06:22 05/01/18 06:22 04/30/18 20:50 05/01/18 00:00 Laboratory Results 04/30/18 06:15 05/01/18 05:55 04/30/18 05/01/18 05/02/18 05:59 05:59 05:59 Intake Total 1140 2371 Output Total 3490 1175 Balance -2350 1196 - Time Spent With Patient Time Spent with Patient: greater than 35 minutes Time Spent with Patient: Greater than 35 minutes spent on this patients care, greater than 50% of time spent counseling, educating, and coordinating care regarding the above mentioned plan. - Physical Exam Constitutional: no apparent distress Eyes: PERRL Ears, Nose, Mouth, Throat: moist mucous membranes Cardiovascular: regular rate and rhythym Respiratory: rhonchi Gastrointestinal: normoactive bowel sounds, soft, non-tender abdomen, no palpable masses Genitourinary: paulson in urethra Skin: warm ICD10 Worksheet Patient Problems: Problems Problem Status Onset Hypoxia Acute Multiple sclerosis Acute
[2018-05-01] MEDS: CHOLECALCIFEROL VIT D3 2,000 UNITS TAB/CAP PO SCH (08:47)
[2018-05-01] MEDS: ESCITALOPRAM OXALATE 10 MG TAB PO SCH (08:47)
[2018-05-01] MEDS: BACLOFEN 20 MG TAB PO SCH ×2 (08:47→20:31)
[2018-05-01] MEDS ORDERED: BISACODYL 10 MG SUPP PR PRN (11:43)
[2018-05-01] MEDS ORDERED: LACTULOSE 20 GM/30 ML UDCUP PO PRN (11:43)
[2018-05-01] MEDS ORDERED: POLYETHYLENE GLYCOL 3350 17 GM PKT PO PRN (11:43)
[2018-05-01] MEDS ORDERED: MAGNESIUM HYDROXIDE 30 ML UDCUP PO PRN (11:43)
[2018-05-01] MEDS: TAMSULOSIN HCL 0.4 MG CAP PO SCH (12:29)
[2018-05-01] MEDS: guaiFENesin 600 MG TAB.ER PO SCH ×2 (12:29→20:30)
--- NOTE | 2018-05-01 16:09 | ASMTCMCOM ---
CM Note CM Note Notes: Spoke to patient's daughter about SNF Rehab. She felt that he is close to his baseline and that they do have 2+ people at home to asist with his needs. Patient prefers to go home with HC. This CM to send a referral to [facility]. Date Signed: 05/01/2018 04:08 PM Electronically Signed By:Stephanie Galvin LCSW
[2018-05-01] MEDS: QUEtiapine FUMARATE 300 MG TAB PO SCH (20:31)
[2018-05-01] MEDS: SENNOSIDES/DOCUSATE SODIUM TAB PO SCH (20:31)
[2018-05-02] MEDS: PIPERACILLIN/TAZO 3.375 GM/DEX 50 ML IV SCH ×3 (00:15→11:51)
[2018-05-02] MEDS: IPRATROPIUM/ALBUTEROL 3 ML DEYVIAL IH SCH ×2 (05:26→11:44)
[2018-05-02] MEDS: SENNOSIDES/DOCUSATE SODIUM TAB PO SCH (08:57)
[2018-05-02] MEDS: TAMSULOSIN HCL 0.4 MG CAP PO SCH (08:57)
[2018-05-02] MEDS: BACLOFEN 20 MG TAB PO SCH (08:58)
[2018-05-02] MEDS: guaiFENesin 600 MG TAB.ER PO SCH (08:59)
[2018-05-02] MEDS: CHOLECALCIFEROL VIT D3 2,000 UNITS TAB/CAP PO SCH (08:59)
[2018-05-02] MEDS: ESCITALOPRAM OXALATE 10 MG TAB PO SCH (08:59)
[2018-05-02] MEDS: ENOXAPARIN 40 MG/0.4 ML SYR SC SCH (09:00)
[2018-05-02] MEDS ORDERED: FUROSEMIDE 20 MG/2 ML VIAL IVP ONE ×2 (10:32)
--- NOTE | 2018-05-02 10:37 | PDIAF ---
- Diagnosis Diagnosis: pneumonia Code Status: Full Code - Medication Management Discharge Medications: Medications to Continue on Transfer Baclofen [Baclofen 20 mg (*)] 30 mg PO BID 04/26/18 [Last Taken 04/26/18 08:00] Cholecalciferol Vit D3 [Vitamin D3 2000 units tab (OTC)] 5,000 units PO DAILY [Last Taken 04/25/18] Escitalopram Oxalate [Lexapro] 20 mg PO DAILY 04/26/18 [Last Taken 04/26/18 08: 00] QUEtiapine FUMARATE [Seroquel 300mg (*)] 300 mg PO HS 04/26/18 [Last Taken 04/25] Tizanidine HCl 8 mg PO HS 04/26/18 [Last Taken 04/26/18] tiZANidine HCL [Zanaflex] 4 mg PO DAILY 04/26/18 [Last Taken Unknown] Tamsulosin HCl [Flomax 0.4 MG (*)] 0.4 mg PO DAILY #30 cap 05/02/18 [Last Taken Unknown] predniSONE 40 mg PO DAILY #8 tablet 05/02/18 [Last Taken Unknown] Discharge Medications: Refer to the Discharge Home Medication list for PRN reason. - Orders Services needed: Home Care, Physical Therapy, Occupational Therapy Home Care Face to Face: I certify that this patient was under my care and that I had the required [id number] encounter meeting the encounter requirements on the discharge day. My findings support the fact that the patient is homebound as defined in Home Care Face to Face Continued: CMS Chapter 7 Medicare Benefits Manual 30.1.1 , The condition of the patient is such that there exists a normal inability to leave home and consequently, leaving home would require a considerable and taxing effort. Isolation Type: Droplet Isolation Diet Recommendation: no restrictions on diet Diet Texture: Regular Texture Diet, Thin Liquids, Meds Whole in Puree Additional Instructions: Activity: as tolerated F/U: with PCP in one week - Follow Up Care Current Providers and Referrals: Tarik Davies DO [Primary Care Provider] - As per Instructions
--- NOTE | 2018-05-02 10:41 | PDDCSUM ---
Discharge Summary Discharge Summary: This is a 58 yo male who was admitted with sepsis and Pneumoni of upper lobes. He was started on IVF and Zosyn. Overall, he completed a 7 day course of Zosyn. At the time of discharge he is still on 2-3 L O2 which is not his baseline. I offered another night hospitalization to address this but at this time he wants to go home as this was his expectation. He has signs of slight volume overload and he will get Lasix x 1 before he goes. In addition, I have started a short Prednisone burst. No need for additional abx. His BP is appropriate off his BP meds and these will be held until f/u with PCP He will have HHC at home He will f/u with his PCP w/i one week. This plan was explained to him and his daughter in Liberian and they both agree. DDX: #Septic shock: off pressors. Still on broad-abx. Cultures negative. Normal echo +Rhinovirus, PNA -Day 05/12 Zosyn #Pneumonia #Metabolic encephalopathy: resolved #Hypotension: from over-diuresis. Resolved with small IVFs #Constipation: bowel regimen #Hypernatremia: encourage PO #Acute hypoxic resp failure: due to Rhinovirus, volume overload. Titrate oxygen as tolerated. Home O2. #Mild LAVELLE: resolved #MS: wheel-chair bound #HTN: holding BP meds #Urinary retention: he c/o BPH sxs at home. Meds contributing. Pull paulson, cont Flomax #Deconditioning Exam: NAD AAOX3 DECREASED BREATH SOUNDS CTA B S/NT/ND TRACE LE EDED D/C MEDS: SEE MED REC: HOLDING LOSARTAN. NEW MEDS PREDNISONE AND FLOMAX TOTAL TIME SPENT ON D/C IS 35 MINS
--- NOTE | 2018-05-02 10:44 | ASMTDCNOTE ---
Case Management Discharge Discharge Order Complete? Answers: Yes Patient to Obtain Answers: Independently Medications Transportation Arranged Answers: Family/Friends Faxed Final Orders Answers: Yes Family Notified Answers: Yes Discharge Comments Notes: Patient discharged to home. [facility] will see him for home PT/OT/RN. I gave them his daughter Alyssa' phone number since patient and are SSO. Family will transport him home. Date Signed: 05/02/2018 10:43 AM Electronically Signed By:Tiffanie Lacy RN
--- NOTE | 2018-05-02 10:44 | PDHOMEO2F ---
Home Oxygen Face to Face Home Orders: I certify that a physician or a nurse practitioner or physician's assistant wrestling coach has had a [id number] encounter with this patient on the date of this order due to the diagnosis listed, which relates to the primary reason the patient requires home oxygen. Alternative treatments have been tried, or considered, and deemed ineffective. It is anticipated that supplemental oxygen will result in improvement with treatment. Home oxygen qualifying diagnosis: HYPOXEMIA SpO2 on room air (%): 86 Frequency of home oxygen needed: continuous Home oxygen liters per minute: 3 Home oxygen delivery device: nasal cannula Concentrator: Yes E-tanks for mobility and back up: Yes If ordering portable O2, is the patient mobile in the home?: Yes I certify that, based on these findings, the home oxygen is medically necessary for this patient for the following length of time. Length of time home oxygen needed: 1 month
[2018-05-02] MEDS ORDERED: predniSONE 20 MG TAB PO SCH (10:45)
[2018-05-02 11:54] VITALS: BP 142/103
--- NOTE | 2018-05-02 15:13 | ASDISCHSUM ---
Discharge Information Plan Status:Home with Home Health Medically Cleared to Leave: Discharge Date:05/02/2018 01:15 PM D/C Disposition:Home Health Service [facility] D/C Disposition:[id number] Projected Discharge Date:05/02/2018 11:00 AM Transportation at D/C:Family Discharge Delay Reason: Follow-Up Date:05/02/2018 11:00 AM Discharge Slot: Final Diagnosis:Septic shock, Encephalopathy, Resp failure, MS Placement Information Referral Type:*Home Health Care Services Referral ID:[id number] Provider Name:[facility] Address 1:[address] Address 2: City:[place] Selection Factors: State:[place] Patient Contact Information Contact Name:ALIAESTRADA Relationship: Address:[address] Work Phone: [facility]:[place] Alternate Phone: [facility]/Zip Code:[place] [address] Email: Financial Information Financial Class:Medicaid Primary Plan Desc:[place] Primary Plan Number:[id number] Secondary Plan Desc: Secondary Plan Number: Assessment Information [facility] Initial CM Assessment Living Arrangements What is your living Answers: With Spouse arrangement? Who do you live with? Type Of Residence What kind of residence do Answers: Apartment you live in? Type of Residence Facility Name Notes: It is unclear if patient is living alone or with his . They have listed 2 separate addresses. Discharge Plan Comments Coordination Status Comments Notes: Patient is a 58yo male who is Yoruba speaking only and has a hx of MS. He was admitted for community acquired pneumonia, possible sepsis, tachycardia, acute respiratory failure, fever, hypotension and generalized weakness. 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 D/C plan TBD. CM will follow. Date Signed: 04/27/2018 11:29 AM Electronically Signed By:Justyna Reaves LCSW [facility] Progress Note CM Note CM Note Notes: Therapies are recommending HC services for patient on discharge. Asked daughter who they were current with, she will ask her mother and let CM know which agency. Date Signed: 04/30/2018 12:38 PM Electronically Signed By:Stephanie Galvin LCSW [facility] Progress Note CM Note CM Note Notes: Spoke to patient's daughter about SNF Rehab. She felt that he is close to his baseline and that they do have 2+ people at home to asist with his needs. Patient prefers to go home with HC. This CM to send a referral to [facility]. Date Signed: 05/01/2018 04:08 PM Electronically Signed By:Stephanie Galvin LCSW Case Management Discharge Plan Note Case Management Discharge Discharge Order Complete? Answers: Yes Patient to Obtain Answers: Independently Medications Transportation Arranged Answers: Family/Friends Faxed Final Orders Answers: Yes Family Notified Answers: Yes Discharge Comments Notes: Patient discharged to home. [facility] will see him for home PT/OT/RN. I gave them his daughter Alyssa' phone number since patient and are SSO. Family will transport him home. Date Signed: 05/02/2018 10:43 AM Electronically Signed By:Tiffanie Lacy RN Intervention Information
== END 2018-05-02 13:15 | disposition home health service (06) | DRG 720 ==
LOC: CED 11:46 → CEDHOLD 13:27 → F3N 15:30 → F2N 04-27 10:12
PROVIDERS: ADMIT Family Medicine; ATTEND Family Medicine
PROC: 02H633Z Insertion of Infusion Device into Right Atrium, Percutaneous Approach (ICD-10-PCS; principal; 2018-04-27)
DX: A41.9 Sepsis, unspecified organism (principal); J96.01 Acute respiratory failure with hypoxia; R65.21 Severe sepsis with septic shock; G93.41 Metabolic encephalopathy; N17.9 Acute kidney failure, unspecified; J18.1 Lobar pneumonia, unspecified organism; E86.9 Volume depletion, unspecified; G35 Multiple sclerosis; K21.9 Gastro-esophageal reflux disease without esophagitis; E87.0 Hyperosmolality and hypernatremia; B97.89 Other viral agents as the cause of diseases classified elsewhere; I10 Essential (primary) hypertension; R33.9 Retention of urine, unspecified; Z99.3 Dependence on wheelchair
CPT/HCPCS: 71045-PO; 71275-PO; 74177-PO; 80053-PO; 83605-PO; 92526-GN; 92610-GN; 97162-GP; 97166-GO; 97530-GO; 97530-GP; 97535-GO; C1751; J1650; J1940; J2405; J2543; J3370; J7512; P9041; Q9967

== ENCOUNTER 2018-10-06 12:14 | Emergency (ER) | payer MEDICAID ==
[2018-10-06] MEDS ORDERED: ONDANSETRON 4 MG/2 ML VIAL IVP ONE (12:39)
[2018-10-06] MEDS ORDERED: NS 1,000 ML IV ONE ×2 (12:53→15:37)
--- NOTE | 2018-10-06 13:00 | EDPHY ---
H & P Stated Complaint: vomit x1 and HTN, set from PCP Time Seen by Provider: 10/06/18 12:37 HPI/ROS: CHIEF COMPLAINT: Vomiting, tachycardia, , hypertension, possible dehydration HISTORY OF PRESENT ILLNESS: This is a 58-year-old male who presented to his primary care physician's office today with a report of vomiting twice last night. They noticed that he was tachycardic to the 120s, hypertensive, and a concerned that he was dehydrated. He was referred to the emergency department. Patient has history of MS. He is here with his family. He is [place]-speaking only but the family is translating. They declined biomedical engineering technologist. and daughter report that he was in his usual state of health until last night when he vomited 2 times. Patient denies headache, chest pain, shortness of breath, diarrhea, or abdominal pain. He does report slight cough. No urinary complaints. He was recently started on a unknown medication for prostate inflammation. They do not think it is an antibiotic. They deny fevers or chills. No history of palpitations. No complaints of lightheadedness or dizziness. No prior history of cardiac disease, arrhythmia, murmur. REVIEW OF SYSTEMS: A comprehensive 10 system review of systems was reviewed and is otherwise negative aside from elements mentioned in the history of present illness and medical decision making. PAST MEDICAL HISTORY: MS. Patient is wheelchair bound. He is a full assist transfer. History of bowel obstruction. History of urinary difficulties. SOCIAL HISTORY: Nonsmoker. . Here with family. VITAL SIGNS Reviewed by me. 122, 168/97, 93% on room air, 20, 37.0 GENERAL: Very pleasant, cooperative, alert, no obvious respiratory distress. HEENT: Atraumatic. Eyes: No icterus, no injection. Patient has a lazy eye on the left. Mouth: moist mucous membranes. No erythema or lesions. Neck: supple with no adenopathy. LUNGS: Coarse breath sounds bilaterally at the bases. No wheezes or rhonchi auscultated. CARDIAC: Tachycardic, regular, harsh blowing systolic murmur. ABDOMEN: Soft, nontender, nondistended. Normal bowel sounds. BACK: No CVA tenderness. EXTREMITIES: No trauma. No edema. Motor strength and range of motion at the patient's baseline per the family. NEURO: Alert and oriented, no acute focal defects. SKIN: Warm and dry, no rash. PSYCHIATRIC: Normal mentation, no agitation. - Medical/Surgical History Hx Asthma: No Hx Chronic Respiratory Disease: No Hx Diabetes: No Hx Cardiac Disease: Yes Hx Renal Disease: No Hx Cirrhosis: No Hx Alcoholism: No Hx HIV/AIDS: No Hx Splenectomy or Spleen Trauma: No Other PMH: MS, HTN - Social History Smoking Status: Never smoked Constitutional: Initial Vital Signs Temperature (C) 37.0 C 10/06/18 12:33 Heart Rate 122 H 10/06/18 12:33 Respiratory Rate 20 10/06/18 12:33 Blood Pressure 168/97 H 10/06/18 12:33 O2 Sat (%) 93 10/06/18 12:33 O2 Delivery Mode Room Air Allergies/Adverse Reactions: No Known Allergies Allergy (Verified 10/06/18 12:26) Home Medications: Medication Instructions Recorded Cholecalciferol (Vitamin D3) 10/06/18 [Vitamin D3] Escitalopram Oxalate [Lexapro] 10/06/18 Linaclotide [Linzess] 10/06/18 QUEtiapine FUMARATE [Seroquel 10/06/18 300mg (*)] Rosuvastatin Calcium [Crestor] 10/06/18 tiZANidine HCL [Zanaflex] 10/06/18 Medical Decision Making - Diagnostics EKG Interpretation: 12-LEAD EKG: Please see the full report in [facility]. My interpretation: Sinus tachycardia T-wave inversions lead 3 Imaging Results: Abdomen X-Ray 10/06/18 13:08 Impression: High-grade mid to distal small bowel obstruction. Chest X-Ray 10/06/18 13:08 Impression: 1. Cardiomegaly. 2. No pneumothorax. 2. No definite pneumonia or congestive heart failure. Abdomen CT 10/06/18 13:33 Impression: 1. High-grade small bowel obstruction with transition region probably in the mid abdomen between the jejunum and ileum. 2. No pneumoperitoneum or drainable abscess. Findings and recommendations discussed with Emergency Department physician, Katya Burrell MD, at 1421 hour, 10/06/2018. Final report concurs with initial preliminary interpretation. Imaging: Discussed imaging studies w/ hot baller Radiologist, I viewed and interpreted images myself ED Course/Re-evaluation: 58-year-old gentleman with history of MS. Reports vomiting times 2 last night. He presents with tachycardia, hypertension, and a new systolic murmur on examination. CBC largely noncontributory, white count of 12. Electrolytes demonstrate glucose of 150, normal renal function. Troponin is 0.02. Urinalysis: Negative dip. Chest x-ray: No free air, mild cardiomegaly, no fluid overload. Abdominal series: Dilated loops of small bowel. CT scan abdomen: Small-bowel obstruction. After receiving fluids patient's vital signs improved slightly with a heart rate of 116. Discussed the diagnosis with the patient and his family. Patient vomited a 2nd time. Phenergan was given in the patient had NG tube placed. Family request admission to [facility]. This was arranged. Patient will be admitted to Dr. Duron at [facility]. General surgeon Dr. Elijah Salomon is aware of the patient as well. Differential Diagnosis: Differential diagnosis of the patient's nausea and vomiting was considered including but not limited to gastroenteritis, gastritis, intraabdominal processes including appendicitis, pancreatitis, bowel obstruction and medication side effect. Consult/Admit Bed Type: Dr. Duron, [facility], med surg - Data Points Medications Given: Discontinued Medications Fentanyl (Sublimaze) 50 mcg IVP ONCE ONE Stop: 10/06/18 15:38 Last Admin: 10/06/18 15:43 Dose: 50 mcg Sodium Chloride (Ns) 1,000 mls @ 0 mls/hr IV ONCE ONE PRN Reason: Wide Open Stop: 10/06/18 12:54 Last Admin: 10/06/18 12:53 Dose: 1,000 mls Sodium Chloride (Ns) 1,000 mls @ 0 mls/hr IV ONCE ONE; Wide Open PRN Reason: Protocol Stop: 10/06/18 15:38 Last Admin: 10/06/18 15:42 Dose: 1,000 mls Ondansetron HCl (Zofran) 4 mg IVP EDNOW ONE Stop: 10/06/18 12:40 Last Admin: 10/06/18 12:58 Dose: 4 mg Promethazine HCl (Phenergan) 12.5 mg IVP EDNOW ONE Stop: 10/06/18 14:27 Last Admin: 10/06/18 14:37 Dose: 12.5 mg Point of Care Test Results: CBC CBC Collection Date 10/06/18 CBC Collection Time 12:41 WBC 12.2 RBC 5.25 HGB 16.5 HCT 46.4 PLT 253 Neut # 10.4 Neut 85.2 LYMPH # 1.3 LYMPH 10.8 Other WBC # 0.5 Other WBC 4.0 MCV 88.4 Chemistry 10/06/18 10/06/18 12:46 12:45 POC Sodium 143 mEq/L mEq/L (135-145) POC Potassium 3.8 mEq/L mEq/L (3.3-5.0) POC Chloride 107.0 mEq/L mEq/L (97-110) POC Total CO2 25 mEq/L mEq/L (22-31) POC BUN 17 mg/dL mg/dL (7-23) POC Creatinine 0.8 mg/dL mg/dL (0.7-1.3) POC Glucose 150 mg/dL H mg/dL (70-100) POC Calcium 9.8 mg/dL mg/dL (8.5-10.4) POC Total Bilirubin 0.6 mg/dL mg/dL (0.1-1.4) POC AST 32 IU/L IU/L (17-59) POC ALT 31 IU/L IU/L (21-72) POC Alk Phosphatase 88 IU/L IU/L (38-126) POC Troponin I 0.02 ng/mL ng/mL (0.00-0.08) POC Total Protein 8.5 g/dL H g/dL (6.3-8.2) POC Albumin 4.3 g/dL g/dL (3.5-5.0) Urine Dip Collection Date 10/06/18 Collection Time 13:50 Specific Marshall (1.002-1.030) 1.020 PH (5.0-7.5) 8.0 Leukocytes (Negative) Negative Nitrites (Negative) Negative Protein (Negative) 1+ Glucose (Negative) Negative Ketones (Negative) Trace Urobilnogen (0.2-1.0 EU) 1.0 Bilirubin (Negative) Negative Blood (Negative) Negative Departure - Departure Disposition: Acute Care Hospital [facility] Clinical Impression: Multiple sclerosis, Small bowel obstruction Vomiting Qualifiers: Vomiting type: unspecified Vomiting Intractability: non-intractable Nausea presence: unspecified Qualified Code(s): R11.10 - Vomiting, unspecified
[2018-10-06] MEDS ORDERED: IOPAMIDOL (ISOVUE-300) 100 ML BTL ONE (13:47)
[2018-10-06] MEDS ORDERED: PROMETHAZINE HCL 25 MG/ML INJ IVP ONE (14:26)
[2018-10-06] MEDS ORDERED: fentaNYL 100 MCG/2 ML INJ IVP ONE (15:37)
[2018-10-06 18:31] VITALS: BP 155/111
--- NOTE | 2018-10-07 21:09 | CPEKG ---
Test Reason : OPEN Blood Pressure : / mmHG Vent. Rate : 120 BPM Atrial Rate : 121 BPM P-R Int : 141 ms QRS Dur : 084 ms QT Int : 316 ms P-R-T Axes : 046 088 010 degrees QTc Int : 447 ms Sinus tachycardia Probable left atrial enlargement Confirmed by Katya Burrell ([id number]) on 10/07/2018 9:09:28 PM Referred By: Confirmed By:Katya Burrell
== END 2018-10-06 17:44 | disposition short-term general hospital (02) ==
LOC: CED 12:14 → UNDOADMIN 14:26 → CEDHOLD 14:26
DX: R11.10 Vomiting, unspecified (principal); K56.609 Unspecified intestinal obstruction, unspecified as to partial versus complete obstruction; G35 Multiple sclerosis; R00.0 Tachycardia, unspecified; I10 Essential (primary) hypertension
CPT/HCPCS: 71046-PO; 74018-PO; 74019-PO; 74177-PO; 80053-PO; 84484-PO; 96374; J2405; J2550; J3010; Q9967